=== PATIENT | male | born 1965 | race Caucasian/White ===

== ENCOUNTER 2017-10-31 07:01 | Emergency (ER) | payer OTHER ==
[2017-10-31] MEDS ORDERED: methylPREDNISolone Sodium Succinate 125 MG/2 ML SDV IM ONE (07:47)
[2017-10-31] MEDS ORDERED: Ketorolac 60 MG/2 ML SDV IM ONE (07:47)
[2017-10-31] MEDS ORDERED: Acetaminophen/oxyCODONE 325-5 MG Tab PO ONE (07:47)
--- NOTE | 2017-10-31 07:53 | EDM.PDOC ---
<Ivett Anderson - Last Filed: 10/31/17 07:48> ED HPI GENERAL MEDICAL PROBLEM - General Chief Complaint: Back Pain or Injury Stated Complaint: BACK PAIN Time Seen by Provider: 10/31/17 07:38 Source of Information: Reports: Patient History Limitations: Reports: No Limitations - History of Present Illness INITIAL COMMENTS - FREE TEXT/NARRATIVE: Patient is a 52 YO male who presents today for low back pain. He states this started on , 4 days ago. He does not remember any injury to the back. 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 He states his back was a little tight on Monday and Monday but walking around seemed to make it better. He was doing okay this morning and then he went to have a BM and stood up and had sudden left sided back pain. He was unable to walk due to the pain and unable to ambulate into the ER today due to pain. He states it is more on the left side, lower back. He does have some pain going into the left buttock but does not radiate down his leg. He denies numbness and tingling into the left foot. He has no symptoms on the right side. He denies chronic back pain. He denies bowel or bladder incontinence. Left Back Pain Score (Numeric/FACES): 9 - Related Data Allergies Allergy/AdvReac Type Severity Reaction Status Date / Time No Known Allergies Allergy Verified 10/31/17 07:12 Home Meds: Home Meds Acetaminophen/oxyCODONE [Percocet 325-5 MG] 1 each PO Q6HR PRN #14 tab 10/31/17 [Rx] Naproxen [Naprosyn] 500 mg PO Q12HR #14 tab 10/31/17 [Rx] ED ROS GENERAL - Review of Systems Review Of Systems: See Below Constitutional: Reports: No Symptoms Respiratory: Reports: No Symptoms Cardiovascular: Reports: No Symptoms GI/Abdominal: Reports: No Symptoms : Reports: No Symptoms Musculoskeletal: Reports: Back Pain, Muscle Stiffness Skin: Reports: No Symptoms Neurological: Reports: No Symptoms Psychiatric: Reports: No Symptoms ED EXAM,LOWER BACK PAIN/INJURY - Physical Exam Exam: See Below Exam Limited By: No Limitations General Appearance: Alert, WD/WN, Moderate Distress Respiratory/Chest: No Respiratory Distress, Lungs Clear, Normal Breath Sounds Cardiovascular: Regular Rate, Rhythm, No Murmur GI/Abdominal: Normal Bowel Sounds, Soft, Non-Tender Back Exam: Normal Inspection, Decreased Range of Motion, Muscle Spasm, Paraspinal Tenderness (Patient reports the pressure on his back from palpation releives some of the pain), Other (Patient was able to stand up and take a few steps. Once he was up, he said the pain improved slightly. Patient is bend over and is unable to straighten up.). No: Vertebral Tenderness Neurological: Alert, Normal Mood/Affect, Normal Dorsiflexion, CN II-XII Intact, Normal Plantar Flexion, Oriented x 3, Abnormal Gait (favoring right leg) Psychiatric: Normal Affect, Normal Mood Skin Exam: Warm, Dry, Intact, Normal Color, No Rash Course - Vital Signs Last Recorded V/S: Last Vital Signs Temp 98.5 F 10/31/17 07:12 Pulse 90 10/31/17 07:12 Resp BP 138/96 H 10/31/17 07:12 Pulse Ox 96 10/31/17 07:12 - Orders/Labs/Meds Meds: Medications Discontinued Medications Generic Name Dose Route Start Last Admin Trade Name Freq PRN Reason Stop Dose Admin Ketorolac Tromethamine 60 mg 10/31/17 07:47 10/31/17 08:07 Toradol IM 10/31/17 07:48 60 mg ONETIME ONE Administration Methylprednisolone Sodium Succinate 125 mg 10/31/17 07:47 10/31/17 08:05 Solu-Medrol IM 10/31/17 07:48 125 mg ONETIME ONE Administration Oxycodone/Acetaminophen 1 tab 10/31/17 07:47 10/31/17 08:03 Percocet 325-5 Mg PO 10/31/17 07:48 1 tab ONETIME ONE Administration Departure - Departure Disposition: Home, Self-Care 01 Clinical Impression: Sciatica Qualifiers: Laterality: left Qualified Code(s): M54.32 - Sciatica, left side - Discharge Information Prescriptions: Acetaminophen/oxyCODONE [Percocet 325-5 MG] 1 each PO Q6HR PRN #14 tab PRN Reason: Pain Naproxen [Naprosyn] 500 mg PO Q12HR #14 tab Instructions: Sciatica, [id number] Referrals: PCP,Unknown [Ordering Only Provider] - Forms: ED Department Discharge, ED Return to Work/School Form Additional Instructions: Rest back, no heavy lifting, alternate ice and heat as needed, Naprosyn 500 mg twice daily for pain and inflammation, Percocet 11/16/24 one tab every 6-8 hours as needed for severe pain, when the pain becomes less severe switch to Tylenol or take one half tablet every 6-8 hours for last side effect, do not drive or work when taking Percocet. Prednisone as prescribed, physical therapy evaluation and treatment to help you to get better more quickly. Follow-up clinic in about 1 week if not getting back to normal as expected. <Williams Suazo - Last Filed: 10/31/17 08:46> ED ROS GENERAL - Review of Systems HEENT: Reports: No Symptoms Musculoskeletal: Reports: Back Pain (Left low back with radiation to left buttock). Denies: Leg Pain Neurological: Denies: Numbness, Tingling ED EXAM,LOWER BACK PAIN/INJURY - Physical Exam Head: Atraumatic. No: Facial Swelling Neck: Supple Course - Re-Assessments/Exams Free Text/Narrative Re-Assessment/Exam: 10/31/17 08:45 Initial hx and exam was done by NEGRA Baltazar student. I agree with her hx and exam as documented. I have also interviewed and examined patient. Discharge instr. as documented. Departure - Departure Time of Disposition: 08:12 Condition: Fair
== END 2017-10-31 08:40 | disposition home or self-care (01) ==
LOC: JD.ED 07:01
DX: M54.32 Sciatica, left side (principal)
CPT/HCPCS: 96372; 99283; A9270; J1885; J2930